=== PATIENT | male | born 1945 | race Caucasian/White ===

== ENCOUNTER 2018-05-18 18:03 | Emergency (ER) | payer OTHER ==
[~2018-05-18] VITALS: Ht 172.7 cm; Wt 90.7 kg
[2018-05-18] MEDS ORDERED: ULTRAM50 MG (18:44)
== END 2018-05-18 22:35 | disposition home or self-care (01) ==
LOC: ER
DX: I83.013 Varicose veins of right lower extremity with ulcer of ankle (principal); L97.319 Non-pressure chronic ulcer of right ankle with unspecified severity

== ENCOUNTER 2018-05-21 09:31 | Emergency (ER) | payer OTHER ==
[~2018-05-21] VITALS: Ht 172.7 cm; Wt 90.7 kg
[~2018-05-21 09:31] MED LIST: ULTRAM50 MG
[2018-05-21] MEDS ORDERED: LEVAQUIN750 MG (10:07)
[2018-05-21] MEDS ORDERED: SIMVASTATIN20 MG (10:07)
[2018-05-21] MEDS ORDERED: FINASTERIDE5 MG (10:08)
== END 2018-05-21 15:10 | disposition home or self-care (01) ==
LOC: ER 09:31
DX: I83.013 Varicose veins of right lower extremity with ulcer of ankle (principal); L97.318 Non-pressure chronic ulcer of right ankle with other specified severity; L03.115 Cellulitis of right lower limb

== ENCOUNTER 2020-09-21 09:14 | Outpatient (CLI) | payer OTHER ==
[~2020-09-21 09:14] MED LIST changes: +FINASTERIDE5 MG; +LEVAQUIN750 MG; +SIMVASTATIN20 MG
== END 2020-09-21 15:00 | disposition home or self-care (01) ==
LOC: LAB 09:14
PROVIDERS: ATTEND Specialist
DX: Z03.818 Encounter for observation for suspected exposure to other biological agents ruled out (principal); R05 Cough; Z20.828 Contact with and (suspected) exposure to other viral communicable diseases

== ENCOUNTER 2023-05-29 08:42 | Outpatient (CLI) | payer OTHER | END 2023-05-29 08:46 | disposition home or self-care (01) | LOC: RX STUDY 08:42 | PROVIDERS: ATTEND Otolaryngology Plastic Surgery within the Head & Neck | DX: R13.19 Other dysphagia (principal); R09.89 Other specified symptoms and signs involving the circulatory and respiratory systems ==